=== PATIENT | male | born 1945 | race Caucasian/White ===

== ENCOUNTER → 2022-08-08 07:05 | Outpatient (CLI) | payer MEDICARE, SELFPAY ==
[2022-08-08 07:58] LABS: Influenza A - CEPHEID Flu A NEGATIVE (NEGATIVE); Influenza B - CEPHEID Flu B NEGATIVE (NEGATIVE); Respiratory Syncytial Virus Negative (Negative)
[2022-08-08 08:42] LABS: COVID-19 CEPHEID 4-PLEX PCR Negative (Negative)
== END ==
PROVIDERS: Visit Provider Physician Assistant
DX: J06.9 Acute upper respiratory infection, unspecified (principal)
CPT/HCPCS: 0241U

== ENCOUNTER → 2022-08-12 07:48 | Outpatient (CLI) | payer MEDICARE, SELFPAY ==
--- NOTE | 2022-08-12 07:50 | DI.RAD.S_ITS ---
PROCEDURE: XR CHEST 2V INDICATIONS: Cough TECHNIQUE: 2 views of the chest were acquired. COMPARISON: None. FINDINGS: Surgical changes and devices: None. Lungs and pleura: Retrocardiac opacity. Peribronchial cuffing. Mediastinum: Mediastinal contours are normal. Heart size is normal. Bones and chest wall: No suspicious bony abnormalities. Soft tissues appear unremarkable. IMPRESSION: 1. Retrocardiac opacity, which may represent a focus of infection or mass. In the absence of leukocytosis, CT is recommended. 2. Peribronchial cuffing, typically indicating infectious or inflammatory bronchitis. Dictated by: Armaan Holden M.D. on 08/12/2022 at 9:18 Approved by: Armaan Holden M.D. on 08/12/2022 at 9:25
== END ==
PROVIDERS: Referring Provider Nurse Practitioner Family; Visit Provider Nurse Practitioner Family
DX: R05.9 Cough, unspecified (principal)
CPT/HCPCS: 71046

== ENCOUNTER 2024-04-29 07:27 | Emergency (ER) | payer MEDICARE, SELFPAY ==
[2024-04-29 07:30] VITALS: BP 128/59; PULSE 81; RESP 14; TEMP 36.9; O2SAT 98; BMI 29.7
--- NOTE | 2024-04-29 07:41 | DI.RAD.S_ITS ---
PROCEDURE: XR SHOULDER RT MIN 2V INDICATIONS: fall last night, shoulder/neck pain TECHNIQUE: Three views of the shoulder were acquired. COMPARISON: None. FINDINGS: Bones: No fractures or dislocations. Widening of the acromioclavicular joint to 7.6 mm. No elevation of the distal clavicle. Lateral humeral head deformity suggests remote glenohumeral joint dislocation. Normal alignment No suspicious bony lesions. Visualized ribs appear intact. Soft tissues: No suspicious soft tissue calcifications. IMPRESSION: No acute fracture or dislocation. AC joint separation of uncertain chronicity. Evidence remote trauma. Dictated by: Mami Garza M.D. on 04/29/2024 at 7:59 Approved by: Mami Garza M.D. on 04/29/2024 at 8:01
--- NOTE | 2024-04-29 07:49 | ED.UPPEXIN ---
HPI - Extremity Injury (Upper) General Chief Complaint: Fall Stated Complaint: fell last night /shoulder pain Time Seen by Provider: 04/29/24 07:37 History of Present Illness HPI narrative: 78-year-old male who does not take blood thinner medications besides aspirin, had ground level fall last night, sustained a scratch to the back of his head, no headache, no loss of consciousness, no nausea or vomiting, no weakness to face arm or legs. He predominantly has complaint of right trapezius shoulder area discomfort, worse with movement. No other apparent injuries. He does not seem to have any pain to the posterior neck. No pain to the upper right arm, elbow, forearm, wrist, hand, fingers. No treatment tried, feels better holding his right arm still against his anterior chest/abdomen Related Data Previous Rx's Medication Instructions Recorded albuterol sulfate 90 mcg/actuation 2 puff inhalation Q6H PRN 08/12/22 aerosol inhaler shortness of breath or wheezing #6.7 grams azithromycin 250 mg tablet See Rx Instructions PO .COMPLEX #6 08/12/22 tabs benzonatate 100 mg capsule 100 mg PO BID PRN cough #20 caps 08/12/22 inhalational spacing device #1 ea 08/12/22 (Aerochamber MV spacer) methocarbamol 500 mg tablet 500 mg PO TID 7 days #21 tabs 04/29/24 Allergies Allergy/AdvReac Type Severity Reaction Status Date / Time No Known Drug Allergies Allergy Verified 04/29/24 07:41 Review of Systems Review of Systems Narrative: See HPI Patient History Social History Smoking Status: Unknown if ever smoked Smoking Status: Unknown if ever smoked Exam Narrative Exam Narrative: GENERAL: Well-developed patient, in mild distress. HEAD: Right occipital area 3 cm linear superficial small abrasion, no crepitance or swelling associated. No active bleeding. EYES: Pupils equal round and reactive. Extraocular motions intact. No scleral icterus. No injection or drainage. ENT: Nose without bleeding, purulent drainage. Throat without erythema, tonsillar hypertrophy or exudate. Airway patent. NECK: Trachea midline. Non tender CARDIOVASCULAR: Regular rate and rhythm without murmurs, gallops, or rubs. RESPIRATORY: Clear to auscultation. Breath sounds equal bilaterally. No wheezes, rales, or rhonchi. GASTROINTESTINAL: Abdomen soft, non-tender, nondistended. EXTREMITIES: No gross right shoulder deformity, no tenderness anterior deltoid, bicipital groove, AC, along clavicle, posterior long rhomboid. However some tenderness superior right trapezius that reproduces his right shoulder pain symptoms. No injuries or tenderness to right upper arm or distal right upper extremity. No obvious left upper extremity injuries. BACK: Nontender without deformity or crepitance. No flank tenderness. NEURO: AOx3. Motor functions grossly nonfocal SKIN: No rash or erythema of visible areas Initial Vital Signs Initial Vital Signs: Vital Signs Temperature 98.4 F 04/29/24 07:30 Pulse Rate 81 04/29/24 07:30 Respiratory Rate 14 04/29/24 07:30 Blood Pressure 128/59 L 04/29/24 07:30 Pulse Oximetry 98 04/29/24 07:30 Oxygen Delivery Method Room Air 04/29/24 07:30 Course Orders Ordered: ED Orders 04/29/24 07:41 XR shoulder RT min 2V Stat Discontinued Medications Bacitracin (Bacitracin Oint 0.9 Gm Pckt) 1 applic TOP NOW ONE Stop: 04/29/24 08:37 Methocarbamol (Methocarbamol 500 Mg Tablet) 500 mg PO NOW ONE Stop: 04/29/24 08:27 Vital Signs Vital signs: Vital Signs - 8 hr 04/29/24 07:30 Temperature 98.4 F Pulse Rate 81 Respiratory Rate 14 Blood Pressure 128/59 L Pulse Oximetry 98 Oxygen Delivery Method Room Air MDM - Extremity Injury (Upper) MDM Narrative Medical decision making narrative: 78-year-old male with ground level fall, occipital scalp scratch small abrasion, no loss of consciousness. We discussed CT imaging, low risk injury, he declines imaging. Tenderness right superior trapezius region, without other areas of tenderness, including the AC joint. X-ray right shoulder ordered from triage. He declines pain medications when offered. X-rays right shoulder, shows possible right AC separation, no fracture, no glenohumeral dislocation, no clavicle fracture, no pneumothorax or upper rib fracture on visualized chest field. See radiology report Antibiotic ointment to linear superficial scratch occipital scalp skin abrasion. On clinical exam he does not have tenderness at AC, suspect this is anatomic variant or old injury, patient informed about the finding. Right shoulder sling for comfort measure, to use the next couple of days, then encouraged range of motion as tolerated so that he does not develop a frozen shoulder. Follow up with PCP advised early next week. Return precautions discussed. Offered muscle relaxant Robaxin for trapezius muscle spasm symptoms, he would like to try this, 1st dose oral now, prescription sent to his pharmacy. Otherwise advised use of [id number] Tylenol/Motrin as needed. Stable/improved. Home with family. Return precautions discussed Discharge Plan Departure Patient Disposition: Home Clinical Impression: Fall from ground level, Strain of right trapezius muscle Activity Restrictions/Additional Instructions: Fall last night with slight scratch to the back of the head, no loss of consciousness or headache or nausea or vomiting or weakness numbness symptoms. We discussed CT head imaging, hold for now. You had right upper shoulder trapezius area discomfort after your fall as your predominant area of discomfort. On examination have tenderness along the right superior trapezius, likely trapezius spasm. X-ray done, possible AC joint separation, however on examination you are not tender at your AC joint, so this may be an old finding or anatomic difference on your AC joint, there is no specific treatment for this at this time if it were an acute separation, trial of shoulder sling, [id number] Tylenol and or Motrin as needed. Follow up with your regular doctor if your shoulders not improving in the next few days. Try doing some modest range of motion shoulder movements if you can, so that you do not develop a frozen shoulder, however sling is prudent for the next couple of days for rest and support. Recheck with your doctor early next week. Return to this/nearest emergency department for any change worsening symptoms or any concerns prior Prescriptions: New methocarbamol 500 mg tablet 500 mg PO TID 7 Days Qty: 21 0RF No Action benzonatate 100 mg capsule 100 mg PO BID PRN (Reason: cough) Qty: 20 0RF (DME) Aerochamber MV Spacer See Rx Instructions .ROUTE .MEDSUPPLY Qty: 1 0RF Rx Instructions: As directed albuterol sulfate 90 mcg/actuation HFA aerosol inhaler 2 puff inhalation Q6H PRN (Reason: shortness of breath or wheezing) Qty: 6.7 0RF azithromycin 250 mg tablet See Rx Instructions PO .COMPLEX Qty: 6 0RF Rx Instructions: For 250 mg dose pack: take 500 mg today (day 1), then 250 mg for 4 days (days 2-5) PO Stand Alone Forms: Patient Portal/API/Survey
[2024-04-29] MEDS: BACITRACIN OINT 0.9 GM PCKT 1 APPLIC TOP (08:42)
[2024-04-29] MEDS: methocarbamoL 500 MG TABLET PO (08:42)
[2024-04-29 08:43] VITALS: BP 128/59; PULSE 70; RESP 14; O2SAT 95
== END 2024-04-29 08:53 | disposition home or self-care (01) ==
PROVIDERS: Emergency Provider Emergency Medicine
DX: S46.811A Strain of other muscles, fascia and tendons at shoulder and upper arm level, right arm, initial encounter (principal); W18.30XA Fall on same level, unspecified, initial encounter
CPT/HCPCS: 73030; 99283